=== PATIENT | female | born 1975 | race Caucasian/White ===

== ENCOUNTER 2021-09-08 08:19 | Outpatient (CLI) | payer BC | END 2021-09-08 08:20 | disposition home or self-care (01) | LOC: CT 08:19 | PROVIDERS: ATTEND Neurological Surgery | DX: M53.3 Sacrococcygeal disorders, not elsewhere classified (principal); M51.36 Other intervertebral disc degeneration, lumbar region; M48.061 Spinal stenosis, lumbar region without neurogenic claudication | CPT/HCPCS: 72192 ==

== ENCOUNTER 2022-04-12 09:03 | Outpatient (CLI) | payer BC | END 2022-04-12 09:04 | disposition home or self-care (01) | LOC: TBSIIMAG 09:03 | PROVIDERS: ATTEND Neurological Surgery | DX: S83.412A Sprain of medial collateral ligament of left knee, initial encounter (principal); S83.512A Sprain of anterior cruciate ligament of left knee, initial encounter; S83.282A Other tear of lateral meniscus, current injury, left knee, initial encounter; S82.145A Nondisplaced bicondylar fracture of left tibia, initial encounter for closed fracture; S86.812A Strain of other muscle(s) and tendon(s) at lower leg level, left leg, initial encounter; S83.8X2A Sprain of other specified parts of left knee, initial encounter ==

== ENCOUNTER 2022-04-18 07:17 | Observation (INO) | payer BC ==
[2022-04-15 14:14] VITALS: BMI 24.3
[2022-04-18] MEDS ORDERED: CEFAZOLIN 2 GM VIAL ONE (07:27)
[2022-04-18] MEDS ORDERED: Vancomycin 1 GM/200 ML (FROZEN) BAG ONE ×2 (07:27→07:28)
[2022-04-18] MEDS ORDERED: Sodium Chloride 0.9% 100 ML ONE (07:27)
[2022-04-18] MEDS ORDERED: CEFAZOLIN 1 GM VIAL ONE (07:28)
[2022-04-18 07:52] LABS: #Eosinphils 0.2 thou/uL (0.0-0.7); #Lymphocytes 1.5 thou/uL (1.20-3.40); #Monocytes 0.4 thou/uL (0.11-0.59); #Neutrophils 2.8 thou/uL (1.40-6.50); %Basophils 0.8 % (0.0-1.0); %Eosinophils 4.6 % (0.0-10.0); %Lymphocytes 29.5 % (21.0-51.0); %Monocytes 7.9 % (0.0-10.0); %Neutrophils 57.2 % (42.0-75.0); Hemoglobin 12.5 g/dL (12.0-16.0); Mean Corpuscular HGB CONC 33.3 g/dL (32.0-36.0); Mean Corpuscular Hemoglobin 31.1 pg (27.0-31.0); Mean Corpuscular Volume 93.3 fl (78.0-98.0); Mean Platelet Volume 6.9 fL (7.4-10.4); Platelet Count 240 10x3/uL (130-400); RBC Distribution Width 12.5 % (11.5-14.5); Red Blood Cell (RBC) Count 4.01 mill/uL (4.20-5.40); White Blood Cell (WBC) Count 4.9 10x3/uL (4.8-10.8)
[2022-04-18 08:12] LABS: Anion Gap 11 mmol/L (10-20); BUN (Urea Nitrogen) 12 mg/dL (7.0-18.7); Calc. Creatinine Clearance 107 mL/min (70-130); Calcium 9.1 mg/dL (7.8-10.44); Carbon Dioxide 26 mmol/L (22-29); Chloride 106 mmol/L (98-107); Estimated GFR 92; Glucose 92 mg/dL (70-105); Potassium 4.2 mmol/L (3.5-5.1); Sodium 139 mmol/L (136-145)
[2022-04-18] MEDS ORDERED: Midazolam HCl 2 mg/2 ml Vial ONE (08:13)
[2022-04-18] MEDS ORDERED: Bupivacaine PF 0.5% 30 ML VIAL ONE ×2 (08:14→09:43)
[2022-04-18] MEDS ORDERED: Lidocaine 1% MPF 2 ML VIAL ONE (08:14)
[2022-04-18] MEDS ORDERED: Methocarbamol 500 MG TAB PO PRN (08:36)
[2022-04-18] MEDS ORDERED: diphenhydrAMINE 50 MG CAP PO PRN (08:36)
[2022-04-18] MEDS ORDERED: traMADol HCl 50 MG TAB PO PRN ×3 (08:36→11:15)
[2022-04-18] MEDS ORDERED: Ondansetron PF 4 MG/2 ML Vial IVP PRN ×2 (08:36→11:15)
[2022-04-18] MEDS ORDERED: Bisacodyl 10 MG SUPP PR PRN (08:36)
[2022-04-18] MEDS ORDERED: Milk Of Magnesia 30 ML UDCUP PO PRN (08:36)
[2022-04-18] MEDS ORDERED: Acetaminophen 325 MG TAB PO PRN (08:36)
[2022-04-18] MEDS ORDERED: HYDROcodone/Acetaminophen 7.5/325 mg Tablet PO PRN ×2 (08:36)
[2022-04-18] MEDS ORDERED: Dexamethasone 20 MG/5 ML VIAL ONE (08:49)
[2022-04-18] MEDS ORDERED: Ketorolac Tromethamine 30 MG/ML VIAL ONE (08:49)
[2022-04-18] MEDS ORDERED: PROPOFOL 200 MG/20 ML VIAL ONE (08:49)
[2022-04-18] MEDS ORDERED: Ondansetron PF 4 MG/2 ML Vial ONE (08:49)
[2022-04-18] MEDS ORDERED: ePHEDrine 50 MG/ML VIAL ONE ×2 (08:49)
[2022-04-18 08:55] LABS: SARS-CoV-2 NAA Rapid Test Not Detected (NotDetected)
[2022-04-18] MEDS ORDERED: Fentanyl 250 MCG/5 ML VIAL ONE (08:57)
[2022-04-18] MEDS ORDERED: Famotidine/PF 20 mg/2ml Vial ONE (09:25)
[2022-04-18] MEDS ORDERED: Morphine 10 MG/ML VIAL ONE ×2 (09:39→10:47)
[2022-04-18] MEDS ORDERED: Fentanyl 100 MCG/2 ML VIAL IV PRN (11:07)
[2022-04-18] MEDS ORDERED: Zolpidem Tartrate 5 MG TAB PO PRN (11:15)
[2022-04-18] MEDS ORDERED: Ropivacaine 0.2% 550 ML 550 ML NERVE BLCK SCH (11:15)
[2022-04-18] MEDS ORDERED: PROPOFOL 20 ML ONE (11:15)
[2022-04-18] MEDS ORDERED: Promethazine HCl 25 MG/ML VIAL IM PRN ×2 (11:15→13:38)
[2022-04-18] MEDS ORDERED: Meperidine HCl/PF 25 MG/ML VIAL SLOW IVP PRN (13:38)
[2022-04-18] MEDS ORDERED: HYDROmorphone 2 MG/ML VIAL SLOW IVP PRN (13:38)
[2022-04-18] MEDS ORDERED: Promethazine HCl 25 MG/ML VIAL IVPB PRN (13:38)
[2022-04-18] MEDS: Dextrose 5 %-0.45 % NaCl 1,000 ML IV SCH ×2 (15:20→16:45)
[2022-04-18] MEDS: CeleCOXIB 100 MG CAP PO SCH (16:46)
[2022-04-18] MEDS: Ketorolac Tromethamine 30 MG/ML VIAL IVP SCH ×3 (16:46→23:13)
[2022-04-18] MEDS: Famotidine 20 MG TAB PO SCH ×2 (16:46→20:36)
[2022-04-18] MEDS: Aspirin Chewable 81 MG TAB PO SCH (16:59)
[2022-04-18] MEDS: CEFAZOLIN 2 GM in Sodium Chloride 0.9% 100 ML IVPB SCH ×2 (17:00→23:14)
[2022-04-18] MEDS: Vancomycin 1.5 GRAM/300 ML BAG 1.5 GM in Premix Bag 1 BAG IVPB SCH (20:36)
[2022-04-19] MEDS: Ketorolac Tromethamine 30 MG/ML VIAL IVP SCH ×2 (06:22→12:31)
[2022-04-19] MEDS: Dextrose 5 %-0.45 % NaCl 1,000 ML IV SCH (07:58)
[2022-04-19] MEDS: Vancomycin 1.5 GRAM/300 ML BAG 1.5 GM in Premix Bag 1 BAG IVPB SCH (08:48)
[2022-04-19] MEDS: Aspirin Chewable 81 MG TAB PO SCH (08:49)
[2022-04-19] MEDS: Famotidine 20 MG TAB PO SCH (08:49)
[2022-04-19] MEDS: CeleCOXIB 100 MG CAP PO SCH (08:49)
[2022-04-19 12:16] VITALS: BP 132/72; TEMP 98.3
== END 2022-04-19 14:06 | disposition home or self-care (01) ==
LOC: SDC 07:17 → SJJU 13:00
PROVIDERS: ADMIT Orthopaedic Surgery; ATTEND Orthopaedic Surgery
PROC: 0MRP47Z Replacement of Left Knee Bursa and Ligament with Autologous Tissue Substitute, Percutaneous Endoscopic Approach (ICD-10-PCS; principal; 2022-04-18)
PROC: 0MRP47Z Replacement of Left Knee Bursa and Ligament with Autologous Tissue Substitute, Percutaneous Endoscopic Approach (ICD-10-PCS; 2022-04-18)
PROC: 0LMR0ZZ Reattachment of Left Knee Tendon, Open Approach (ICD-10-PCS; 2022-04-18)
PROC: 0MQP0ZZ Repair Left Knee Bursa and Ligament, Open Approach (ICD-10-PCS; 2022-04-18)
DX: S83.512A Sprain of anterior cruciate ligament of left knee, initial encounter (principal); S89.92XA Unspecified injury of left lower leg, initial encounter; S86.812A Strain of other muscle(s) and tendon(s) at lower leg level, left leg, initial encounter; S83.412A Sprain of medial collateral ligament of left knee, initial encounter; S83.8X2A Sprain of other specified parts of left knee, initial encounter; S83.282A Other tear of lateral meniscus, current injury, left knee, initial encounter; Z86.16 Personal history of COVID-19; Z79.82 Long term (current) use of aspirin; Z79.899 Other long term (current) drug therapy; Z91.040 Latex allergy status; Z20.822 Contact with and (suspected) exposure to COVID-19; X58.XXXA Exposure to other specified factors, initial encounter; Y93.23 Activity, snow (alpine) (downhill) skiing, snowboarding, sledding, tobogganing and snow tubing
CPT/HCPCS: 36415; 80048; 85025; 93005; 93010; 96374; 96375; 96376; A4306; C1713; C1898; G0378; J0690; J1100; J1885; J2250; J2270; J2405; J2704; J2795; J3010; J3370; J3370-JW; J3490; J7042; S0020; S0028; U0002